=== PATIENT | male | born 1985 | race Asian ===

== ENCOUNTER 2021-10-03 12:41 | Emergency (ER) | payer OTHER ==
[~2021-10-03] VITALS: Wt 181.4 kg
[2021-10-03 13:09] LABS: HEMATOCRIT 35.1 % (42.0-52.0); MEAN CELL VOLUME 105.1 fl (80.0-94.0); MEAN CORPUSCULAR HGB 31.4 pg (27.0-31.0); MEAN CORPUSCULAR HGB CONC 29.9 g/dl (33.0-37.0); MEAN PLATELET VOLUME 10.1 fl (9.6-12.3); PLATELET COUNT AUTOMATED 233 10*3/uL (130-400); RED BLOOD COUNT 3.34 10*6/uL (4.50-5.90); RED CELL DISTRI WIDTH 17.1 % (0-14.5); WHITE BLOOD COUNT 16.7 10*3/uL (4.8-10.8)
[2021-10-03 13:10] LABS: MANUAL DIFF REFLEX YES
[2021-10-03 13:22] LABS: ABG BASE EXCESS 11.6 mmol/L (-2.0-2.0)
[2021-10-03 13:27] LABS: ALKALINE PHOSPHATASE 108 U/L (45-117); BUN 19 mg/dl (7-24); CHLORIDE 102 mmol/L (98-107); CREATININE 1.27 mg/dL (0.70-1.30); POTASSIUM 4.2 mmol/L (3.5-5.1); SGOT/AST 38 IU/L (3-35); SGPT/ALT 45 U/L (12-78); SODIUM 142 mmol/L (136-145); TOTAL PROTEIN 7.7 gm/dL (6.4-8.2)
[2021-10-03 13:28] LABS: ARTERIAL BLOOD GAS PH 7.228 (7.35-7.45); ARTERIAL BLOOD GAS PO2 76.9 (80-90)
[2021-10-03 13:33] LABS: PLATELET SUFFICIENCY NORMAL (NORMAL); TOTAL CELLS COUNTED 100 #CELLS
[2021-10-03 13:34] LABS: POLYCHROMASIA SLIGHT; VACUOLATION OF NEUTROPHILS SLIGHT
[2021-10-03 15:25] LABS: BILIRUBIN Negative (Negative); BLOOD Negative (Negative); CLARITY Turbid (Clear); COLOR Yellow (Yellow); GLUCOSE Negative (Negative); KETONE Negative (Negative); LEUKO ESTERASE 2+ (Negative); NITRITE Negative (Negative); SPECIFIC GRAVITY 1.015 (1.001-1.030); UROBILINOGEN 0.2 E.U./dl (0.0-1.0)
[2021-10-03 15:27] LABS: URINE AMPHETAMINES < 1000 (1000ng/ml); URINE BARBITURATES < 200 (200ng/ml); URINE BENZODIAZEPINES < 200 (200ng/ml); URINE CANNABINOIDS (THC) < 50 (50ng/ml); URINE COCAINE < 300 (300ng/ml); URINE METHADONE < 300 (300ng/ml); URINE OPIATES < 300 (300ng/ml)
[2021-10-03 15:38] LABS: URINE PHENCYCLIDINE < 25 (25ng/ml)
[2021-10-03 15:40] LABS: PH 8.5 (4.5-8.0)
[2021-10-03 15:48] LABS: BACTERIA 3+; TRIP PHOS CRYSTALS 4+; WBC 16-20 wbc/hpf (0-5)
== END 2021-10-03 19:30 | disposition short-term general hospital (02) ==
LOC: ED 12:41
PROVIDERS: Student in an Organized Health Care Education/Training Program
DX: I46.9 Cardiac arrest, cause unspecified (principal); I50.9 Heart failure, unspecified; J18.9 Pneumonia, unspecified organism; Z88.0 Allergy status to penicillin